=== PATIENT | female | born 1945 | race Caucasian/White ===

== ENCOUNTER 2024-11-24 15:38 | Emergency (ER) | payer OTHER ==
[~2024-11-24] VITALS: Ht 162.6 cm; Wt 40.8 kg
[2024-11-24 16:55] LABS: CALCIUM 8.9 mg/dL (8.5-10.1); CARBON DIOXIDE 29 mmol/L (21-32); CHLORIDE 102 mmol/L (98-107); CREATININE 0.6 mg/dL (0.6-1.3); GLUCOSE 120 mg/dL (74-106); POTASSIUM 3.8 mmol/L (3.5-5.1); SODIUM SERUM 142 mmol/L (136-145); UREA NITROGEN, BLOOD 14 mg/dL (7-18)
[2024-11-24 16:57] LABS: BASOPHILS % (AUTO) 0.6 % (0.0-2.0); EOSINOPHILS # (AUTO) 0.1 K/uL (0.0-0.7); EOSINOPHILS % (AUTO) 1.5 % (0.0-7.0); HEMATOCRIT 35.5 % (31.2-41.9); HEMOGLOBIN 11.9 g/dL (10.9-14.3); LYMPHOCYTES # (AUTO) 1.2 K/uL (0.8-4.8); LYMPHOCYTES % (AUTO) 20.3 % (20.5-51.5); MEAN CORPUSCULAR HGB CONC 34 g/dL (32.3-35.6); MEAN CORPUSCULAR VOLUME 89.2 fL (75.5-95.3); MONOCYTES # (AUTO) 0.6 K/uL (0.1-1.30); MONOCYTES % (AUTO) 10.1 % (0.0-11.0); NEUTROPHILS # (AUTO) 3.8 K/uL (1.8-8.9); NEUTROPHILS % (AUTO) 67.5 % (38.5-71.5); PLATELET COUNT (AUTO) 283 K/uL (179-408); RED BLOOD CELL COUNT(AUTO) 3.98 MIL/uL (3.63-4.92); WHITE BLOOD COUNT (AUTO) 5.7 K/uL (3.8-11.8)
[2024-11-24 17:07] LABS: ALANINE AMINOTRANSFERASE 27 U/L (14-59); ALBUMIN 3.6 g/dL (3.4-5.0); ALKALINE PHOSPHATASE 90 U/L (50-136); ASPARTATE AMINOTRANSFERASE 25 U/L (15-37); BILIRUBIN,DIRECT 0.2 mg/dL (0.0-0.2); BILIRUBIN,TOTAL 0.5 mg/dL (0.2-1.0); NT-PRO BNP 201 pg/mL (0-125); TOTAL PROTEIN, SERUM 7.1 g/dL (6.4-8.2)
[2024-11-24 17:30] VITALS: BP 157/83; TEMP 97.3; O2SAT 96
== END 2024-11-24 17:32 | disposition home or self-care (01) ==
LOC: ER 15:43
DX: I87.8 Other specified disorders of veins (principal); R07.9 Chest pain, unspecified; E03.9 Hypothyroidism, unspecified; J44.9 Chronic obstructive pulmonary disease, unspecified
CPT/HCPCS: 36415; 71045; 84484; 85025; 85730; A4606; A4663

== ENCOUNTER 2025-01-23 12:04 | Emergency (ER) | payer OTHER ==
[~2025-01-23] VITALS: Ht 162.6 cm; Wt 40.8 kg
[2025-01-23] MEDS ORDERED: LEVO75TA7 MT (12:18)
[2025-01-23] MEDS ORDERED: ASPI81TA31 PO (12:25)
[2025-01-23 13:47] LABS: *OCCULT BLOOD STOOL POSITIVE (NEGATIVE)
[2025-01-23 13:54] LABS: PLATELET COUNT (AUTO) 279 K/uL (179-408); RED BLOOD CELL COUNT(AUTO) 3.90 MIL/uL (3.63-4.92); RED CELL DISTRIBUTION WIDTH 14.0 % (12.3-17.7); WHITE BLOOD COUNT (AUTO) 5.2 K/uL (3.8-11.8)
[2025-01-23] MEDS: IV NORMAL SALINE 1000 ML BAG IV ONE (13:57)
[2025-01-23 14:02] LABS: CREATININE 0.7 mg/dL (0.6-1.3); SODIUM SERUM 138 mmol/L (136-145); UREA NITROGEN, BLOOD 19 mg/dL (7-18)
[2025-01-23 14:08] LABS: ASPARTATE AMINOTRANSFERASE 27 U/L (15-37); TOTAL PROTEIN, SERUM 7.3 g/dL (6.4-8.2)
[2025-01-23 15:26] VITALS: O2SAT 98
== END 2025-01-23 19:14 | disposition short-term general hospital (02) ==
LOC: ER 12:04
DX: K92.2 Gastrointestinal hemorrhage, unspecified (principal); E03.9 Hypothyroidism, unspecified; K58.9 Irritable bowel syndrome, unspecified; R07.9 Chest pain, unspecified; Z88.7 Allergy status to serum and vaccine; Z60.2 Problems related to living alone
CPT/HCPCS: 99291; 74176; 96360; 82270; 80076; 80048; 83690; 85025; 85730; 86850; 86900; 86901; 84484 ×2; 36415; 71045; 93005; J7040; A4606; A4663